=== PATIENT | male | born 1950 | race Caucasian/White ===

== ENCOUNTER 2023-01-31 11:37 | Day surgery (SDC) | payer MEDICARE ==
[2023-01-28 10:30] LABS: ALBUMIN 3.7 G/DL (3.4-5.0); ANION GAP 4 (8-16); BLOOD UREA NITROGEN 21 MG/DL (7-18); BUN/CREATININE RATIO 23.6 (10.0-20.0); CALCIUM 8.9 MG/DL (8.5-10.1); CHLORIDE 105 MMOL/L (99-107); CREATININE 0.89 MG/DL (0.60-1.10); GLUCOSE 106 MG/DL (70-104); POTASSIUM 4.3 MMOL/L (3.5-5.1); SODIUM 137 MMOL/L (135-145); TOTAL CARBON DIOXIDE 27.7 MMOL/L (24-32); eGFR 84 ML/MIN
[2023-01-28 10:44] LABS: EOSINOPHILS # (AUTO) 0.1 X10'3 (0-0.9); EOSINOPHILS % (AUTO) 1.6 % (0-6); HEMATOCRIT 41.8 % (42.0-52.0); HEMOGLOBIN 14.4 g/dl (14.0-17.9); LYMPHOCYTES # (AUTO) 1.5 X10'3 (1.1-4.8); LYMPHOCYTES % (AUTO) 35.5 % (21-51); MEAN CORPUSCULAR HEMOGLOBIN 33.4 PG (27.0-31.0); MEAN CORPUSCULAR HGB CONC 34.5 g/dL (33.0-36.5); MEAN PLATELET VOLUME 8.5 FL (7.4-10.4); MONOCYTES # (AUTO) 0.5 X10'3 (0-0.9); MONOCYTES % (AUTO) 10.6 % (2-12); NEUTROPHILS # (AUTO) 2.2 X10'3 (1.8-7.7); NEUTROPHILS % (AUTO) 51.3 % (42-75); PLATELET COUNT 262 X10'3 (140-440); RED BLOOD COUNT 4.31 X10'6 (4.70-6.10); RED CELL DISTRIBUTION WIDTH 12.6 % (11.5-14.5); WHITE BLOOD COUNT 4.3 X10'3 (4.5-11.0)
[2023-01-28 10:46] LABS: APTT 34 SECONDS (22-32)
[~2023-01-31] VITALS: Ht 188 cm; Wt 99.6 kg
[2023-01-31] VITALS (10 sets, daily range): BP systolic 101–173; BP diastolic 61–102
[2023-01-31] MEDS ORDERED: ROSU40TA PO (12:08)
[2023-01-31] MEDS ORDERED: APIX5TAB3 PO (12:08)
[2023-01-31] MEDS ORDERED: HYDR-3972 PO (12:08)
[2023-01-31] MEDS ORDERED: SOTA80TA73 PO (12:08)
[2023-01-31] MEDS ORDERED: POTA8CAP20 PO (12:08)
[2023-01-31] MEDS ORDERED: TRIA1CAP88 PO (12:08)
[2023-01-31] MEDS ORDERED: LISI10TA27 PO (12:08)
[2023-01-31] MEDS: fentaNYL/PF 50MCG/1 ML 2ML syringe IV ONE (12:47)
[2023-01-31] MEDS: MIDAZolam 1mg/ml 10ml vial IV ONE (12:47)
[2023-01-31] MEDS: normal saline 1000ml 1,000 ML IV SCH (12:48)
== END 2023-01-31 14:05 | disposition home or self-care (01) ==
LOC: SSTAY O 11:37
PROVIDERS: ATTEND Student in an Organized Health Care Education/Training Program
DX: I48.91 Unspecified atrial fibrillation (principal); E78.5 Hyperlipidemia, unspecified; Z79.899 Other long term (current) drug therapy
CPT/HCPCS: 36415; 80048; 85025; 85610; 85730; 92960; 93005; J2250; J3010; J7030; A4620

== ENCOUNTER 2024-04-05 07:39 | Outpatient (CLI) | payer MEDICARE ==
[~2024-04-05 07:39] MED LIST: APIX5TAB3 PO; HYDR-3972 PO; LISI10TA27 PO; POTA8CAP20 PO; ROSU40TA PO; SOTA80TA73 PO; TRIA1CAP88 PO
[2024-04-05 08:07] LABS: BASOPHILS % (AUTO) 0.8 % (0-1); EOSINOPHILS # (AUTO) 0.1 X10'3 (0-0.9); EOSINOPHILS % (AUTO) 2.3 % (0-6); HEMATOCRIT 42.4 % (42.0-52.0); HEMOGLOBIN 14.3 g/dl (14.0-17.9); LYMPHOCYTES # (AUTO) 1.5 X10'3 (1.1-4.8); LYMPHOCYTES % (AUTO) 41.3 % (21-51); MEAN CORPUSCULAR HEMOGLOBIN 33.8 PG (27.0-31.0); MEAN CORPUSCULAR HGB CONC 33.7 g/dL (33.0-36.5); MEAN CORPUSCULAR VOLUME 100.3 FL (78-98); MEAN PLATELET VOLUME 7.9 FL (7.4-10.4); MONOCYTES # (AUTO) 0.4 X10'3 (0-0.9); MONOCYTES % (AUTO) 11.3 % (2-12); NEUTROPHILS # (AUTO) 1.6 X10'3 (1.8-7.7); NEUTROPHILS % (AUTO) 44.3 % (42-75); PLATELET COUNT 219 X10'3 (140-440); RED BLOOD COUNT 4.23 X10'6 (4.70-6.10); WHITE BLOOD COUNT 3.6 X10'3 (4.5-11.0)
[2024-04-05 08:12] LABS: ALBUMIN 3.9 G/DL (3.4-5.0); ANION GAP 9 (8-16); BLOOD UREA NITROGEN 14 MG/DL (7-18); BUN/CREATININE RATIO 16.1 (10.0-20.0); CALCIUM 8.7 MG/DL (8.5-10.1); CHLORIDE 102 MMOL/L (99-107); CREATININE 0.87 MG/DL (0.60-1.10); GLUCOSE 123 MG/DL (70-104); POTASSIUM 3.6 MMOL/L (3.5-5.1); SODIUM 140 MMOL/L (135-145); eGFR 86 ML/MIN
[2024-04-05 09:01] LABS: APTT 30 SECONDS (22-32); PROTHROMBIN TIME 10.5 SECONDS (9.0-12.0)
== END 2024-04-05 23:59 | disposition home or self-care (01) ==
LOC: RAD 07:39
PROVIDERS: ATTEND Internal Medicine Interventional Cardiology
DX: Z01.812 Encounter for preprocedural laboratory examination (principal); I10 Essential (primary) hypertension; E78.5 Hyperlipidemia, unspecified; M79.609 Pain in unspecified limb; I70.203 Unspecified atherosclerosis of native arteries of extremities, bilateral legs; I48.91 Unspecified atrial fibrillation; G47.10 Hypersomnia, unspecified; F10.10 Alcohol abuse, uncomplicated; R06.02 Shortness of breath; R94.31 Abnormal electrocardiogram [ECG] [EKG]; R00.1 Bradycardia, unspecified; Z82.49 Family history of ischemic heart disease and other diseases of the circulatory system
CPT/HCPCS: 36415; 80048; 85025; 85610; 85730

== ENCOUNTER → 2024-09-11 | Outpatient (CLI) | payer MEDICARE ==
[2024-09-11 10:06] LABS: ALBUMIN 4.1 G/DL (3.4-5.0); ANION GAP 7 (8-16); BLOOD UREA NITROGEN 15 MG/DL (7-18); BUN/CREATININE RATIO 16.5 (10.0-20.0); CALCIUM 9.1 MG/DL (8.5-10.1); CHLORIDE 101 MMOL/L (99-107); CREATININE 0.91 MG/DL (0.60-1.10); GLUCOSE 125 MG/DL (70-104); SODIUM 140 MMOL/L (135-145); TOTAL CARBON DIOXIDE 32.4 MMOL/L (24-32); eGFR 81 ML/MIN
== END | disposition home or self-care (01) ==
LOC: LAB 09:23
PROVIDERS: ATTEND Internal Medicine Interventional Cardiology
DX: I10 Essential (primary) hypertension (principal)
CPT/HCPCS: 36415; 80048

== ENCOUNTER 2025-07-19 09:24 | Day surgery (SDC) | payer MEDICARE, OTHER ==
[2025-07-19 09:46] LABS: MEAN PLATELET VOLUME 8.1 FL (7.4-10.4); RED CELL DISTRIBUTION WIDTH 12.7 % (11.5-14.5)
[2025-07-19 09:58] LABS: APTT 32 SECONDS (22-32); INR 1.1 INR
[2025-07-19 10:00] LABS: CHOL/HDL RATIO 2.0 (0.00-4.99); CREATININE 0.81 MG/DL (0.60-1.10); LDL CHOLESTEROL 44 MG/DL (50-100); TOTAL CARBON DIOXIDE 27.5 MMOL/L (24-32); eGFR > 90 ML/MIN
[2025-07-22] MEDS ORDERED: oxycodone-acetaminop PO (16:03)
[2025-07-22] MEDS ORDERED: OXYB5TAB21 PO (16:03)
[2025-07-22] MEDS ORDERED: SPIR25TA5 PO (16:08)
[2025-07-22] MEDS ORDERED: PER5325T PO (16:08)
[2025-07-22] MEDS ORDERED: FLEC50TA28 PO (16:08)
[2025-07-22] MEDS ORDERED: DOXA4TAB3 PO (16:08)
[2025-07-22] MEDS ORDERED: AMLO-382 PO (16:08)
== END 2025-07-19 23:59 | disposition home or self-care (01) ==
LOC: SSTAY O 09:24
PROVIDERS: ATTEND Student in an Organized Health Care Education/Training Program
DX: I48.91 Unspecified atrial fibrillation (principal); I10 Essential (primary) hypertension; E78.5 Hyperlipidemia, unspecified
CPT/HCPCS: 36415; 80048; 80061; 83695; 85025; 85610; 85730